=== PATIENT | female | born 1955 | race Caucasian/White ===

== ENCOUNTER 2022-11-06 13:37 | Outpatient (CLI) | payer MEDICARE, OTHER | END 2022-11-06 13:38 | disposition home or self-care (01) | LOC: CSHLAB 13:37 | PROVIDERS: ATTEND Student in an Organized Health Care Education/Training Program | DX: Z01.812 Encounter for preprocedural laboratory examination (principal); N84.0 Polyp of corpus uteri; N95.0 Postmenopausal bleeding | CPT/HCPCS: 80048; 85027; 86850; 86900; 86901 ==

== ENCOUNTER 2022-11-08 10:01 | Day surgery (SDC) | payer MEDICARE, OTHER ==
[2022-11-06 14:23] LABS: Hemoglobin 13.9 g/dL (12.0-15.5); Mean Corpuscular HGB CONC 35.2 g/dL (32.0-36.0); Mean Corpuscular Hemoglobin 31.9 pg (27.0-33.0); Mean Corpuscular Volume 90.6 fl (81.6-98.3); Mean Platelet Volume 10.5 fl (7.4-10.4); Platelet Count 280 10x3/uL (150-450); RBC Distribution Width 12.6 % (11.5-14.5); Red Blood Cell (RBC) Count 4.36 10x6/uL (3.90-5.03); White Blood Cell (WBC) Count 9.7 10x3/uL (3.5-10.5)
[2022-11-06 14:52] LABS: Anion Gap 15 mmol/L (10-20); BUN (Urea Nitrogen) 22 mg/dL (9.8-20.1); Calc. Creatinine Clearance 0 mL/min (70-130); Calcium 9.7 mg/dL (7.8-10.44); Carbon Dioxide 26 mmol/L (23-31); Chloride 102 mmol/L (98-107); Estimated GFR 81; Glucose 106 mg/dL (80-115); Potassium 4.1 mmol/L (3.5-5.1); Sodium 139 mmol/L (136-145)
[2022-11-06 15:38] VITALS: BMI 42.3
[2022-11-08] MEDS ORDERED: CeleCOXIB 100 MG CAP ONE (10:11)
[2022-11-08] MEDS ORDERED: Fentanyl 100 MCG/2 ML VIAL ONE (12:00)
[2022-11-08] MEDS ORDERED: PROPOFOL 20 ML ONE (12:00)
[2022-11-08] MEDS ORDERED: Ondansetron PF 4 MG/2 ML Vial ONE (12:01)
[2022-11-08] MEDS ORDERED: Rocuronium Bromide 10 MG/ML (10ML VIAL) ONE (12:01)
[2022-11-08] MEDS ORDERED: Lidocaine 1% PF 5 ML VIAL ONE (12:01)
[2022-11-08] MEDS ORDERED: Dexamethasone 4 mg/ml Vial ONE (12:01)
== END 2022-11-08 14:10 | disposition home or self-care (01) ==
LOC: CSHSDC 10:01
PROVIDERS: ATTEND Student in an Organized Health Care Education/Training Program
PROC: 0UB98ZZ Excision of Uterus, Via Natural or Artificial Opening Endoscopic (ICD-10-PCS; principal; 2022-11-08)
PROC: 0UDB8ZZ Extraction of Endometrium, Via Natural or Artificial Opening Endoscopic (ICD-10-PCS; 2022-11-08)
DX: N84.0 Polyp of corpus uteri (principal); N95.0 Postmenopausal bleeding; I10 Essential (primary) hypertension; K21.9 Gastro-esophageal reflux disease without esophagitis; E78.5 Hyperlipidemia, unspecified; Z79.899 Other long term (current) drug therapy
CPT/HCPCS: 36415; 80048; 85027; 86850; 86900; 86901; 88305; J1100; J2405; J2704; J3010

== ENCOUNTER 2023-01-17 15:05 | Outpatient (CLI) | payer MEDICARE, OTHER | END 2023-01-17 15:06 | disposition home or self-care (01) | LOC: CSHRAD 15:05 | PROVIDERS: ATTEND Internal Medicine | DX: M47.816 Spondylosis without myelopathy or radiculopathy, lumbar region (principal); M41.9 Scoliosis, unspecified | CPT/HCPCS: 72100 ==

== ENCOUNTER 2024-05-20 09:17 | Outpatient (CLI) | payer MEDICARE, OTHER | END 2024-05-20 09:18 | disposition home or self-care (01) | LOC: CSHULT 09:17 | PROVIDERS: ATTEND Internal Medicine | DX: K76.0 Fatty (change of) liver, not elsewhere classified (principal); K80.20 Calculus of gallbladder without cholecystitis without obstruction | CPT/HCPCS: 76700 ==